=== PATIENT | male | born 1960 | race Caucasian/White ===

== ENCOUNTER 2017-05-23 21:11 | Observation (INO) | payer SELFPAY ==
[~2017-05-23] VITALS: Ht 180.3 cm; Wt 92.0 kg
[2017-05-23 21:33] LABS: HEMATOCRIT 42.2 % (38.0-50.0); HEMOGLOBIN 15.5 G/DL (12.5-16.6); MCH 32.3 PG (29.0-34.0); MCHC 36.7 G/DL (30.0-36.0); MCV 87.9 FL (86-99); PLATELET COUNT 258 K/uL (156-360); RBC DIS.WIDTH-CV 11.7 % (11.8-14.6); RBC DIS.WIDTH-SD 37.8 % (39-53); WHITE BLOOD COUNT 8.6 K/uL (4.1-10.2)
[2017-05-23 21:42] LABS: ALBUMIN 4.2 g/dL (3.2-4.8); CHLORIDE 96 mEq/L (99-109); POTASSIUM 4.4 mEq/L (3.7-5.4); SODIUM 127 mEq/L (136-147)
[2017-05-23 21:44] LABS: TOTAL PROTEIN 7.1 g/dL (6.4-8.3)
[2017-05-23 21:46] LABS: TOTAL BILIRUBIN 0.5 mg/dL (0.0-1.0)
[2017-05-23 21:48] LABS: ALKALINE PHOSPHATASE 94 IU/L (3-129); CREATININE 1.6 mg/dL (0.6-1.3); GFR ESTIMATE (CALCULATED) 47 mL/min/ (58.99-99999)
[2017-05-23 21:49] LABS: UREA NITROGEN (BUN) 15 mg/dL (9-23)
[2017-05-23 21:50] LABS: AST (GOT) 15 IU/L (2-34)
[2017-05-23 21:51] LABS: ALT (GPT) 29 IU/L (3-49)
[2017-05-23 21:54] LABS: GLUCOSE 753 mg/dL (70-99)
[2017-05-23 21:57] LABS: APPEARANCE CLEAR ((CLEAR)); BILIRUBIN NEGATIVE; BLOOD NEGATIVE; COLOR STRAW ((YELLOW)); GLUCOSE (STRIP) >=500; KETONES 5; LEUKOCYTES NEGATIVE; NITRITE NEGATIVE; PROTEIN (STRIP) NEGATIVE; SPECIFIC GRAVITY 1.031 (1.000-1.030); UCUL ADDED? NO; UROBILINOGEN 0.2 MG/DL (0.2-1.0)
[2017-05-23 22:55] LABS: BASE EXCESS -2.7 mEq/L (-3 to +3); BICARBONATE 21.9 mEq/L (22-26); CARBOXY HGB 1.1 % (0-5); COMMENTS - BLOOD GASES A+C+; METHEMOGLOBIN 1.1 % (0-1.5); PCO2 37 mm Hg (35-45); PO2 70 mm Hg (80-100); SITE RR; pH 7.38 (7.35-7.45)
[2017-05-23 22:56] LABS: DEVICE RA; TOTAL RESP RATE 18 resp/min
[2017-05-24] MEDS ORDERED: NICODERM CQ1 EAC2 TD (00:07)
[2017-05-24] MEDS ORDERED: NICODERM CQ1 EAC1 TD (00:08)
[2017-05-24 02:06] LABS: CHLORIDE 105 mEq/L (99-109); POTASSIUM 3.7 mEq/L (3.7-5.4); SODIUM 132 mEq/L (136-147)
[2017-05-24 02:12] LABS: CREATININE 1.1 mg/dL (0.6-1.3); GFR ESTIMATE (CALCULATED) > 59 mL/min/ (58.99-99999)
[2017-05-24 02:13] LABS: UREA NITROGEN (BUN) 12 mg/dL (9-23)
[2017-05-24 02:22] LABS: GLUCOSE 419 mg/dL (70-99)
[2017-05-24 02:43] VITALS: BP 124/81
[2017-05-24 07:11] LABS: HEMATOCRIT 39.3 % (38.0-50.0); MCH 31.4 PG (29.0-34.0); MCHC 35.6 G/DL (30.0-36.0); MCV 88.1 FL (86-99); PLATELET COUNT 235 K/uL (156-360); RBC DIS.WIDTH-CV 11.7 % (11.8-14.6); RBC DIS.WIDTH-SD 37.9 % (39-53); RED BLOOD COUNT 4.46 M/uL (4.00-5.50); WHITE BLOOD COUNT 8.1 K/uL (4.1-10.2)
[2017-05-24 07:33] VITALS: BP 99/58
[2017-05-24 07:37] LABS: ALBUMIN 3.6 G/DL (3.2-4.8); ALKALINE PHOSPHATASE 66 IU/L (3-129); ALT (GPT) 18 IU/L (3-49); AST (GOT) 12 IU/L (2-34); CHLORIDE 107 MEQ/L (99-109); CREATININE 0.8 MG/DL (0.6-1.3); GFR ESTIMATE (CALCULATED) > 59 mL/min/ (58.99-99999); HDL CHOLESTEROL 18 MG/DL (Desirable>=40); NON-HDL CHOLESTEROL 197 mg/dL (Desirable<160); POTASSIUM 3.6 MEQ/L (3.7-5.4); SODIUM 137 MEQ/L (136-147); TOTAL BILIRUBIN 0.4 MG/DL (0.0-1.0); TOTAL CHOLESTEROL 215 mg/dL (Desirable<200); TOTAL PROTEIN 5.3 G/DL (6.4-8.3); TRIGLYCERIDES 993 MG/DL (Normal: <150); UREA NITROGEN (BUN) 11 mg/dL (9-23)
[2017-05-24 07:39] LABS: GLUCOSE 100 mg/dL (70-99)
[2017-05-24 09:05] LABS: HEMOGLOBIN A1c (GLYCOHEMOGLOB) 14.2 % (Below 5.7)
[2017-05-24 11:13] VITALS: BP 114/68
[2017-05-24 15:56] VITALS: BP 146/79
[2017-05-24 20:27] VITALS: BP 119/75
[2017-05-24 23:50] VITALS: BP 122/70
[2017-05-25 07:28] VITALS: BP 109/68
[2017-05-25] MEDS ORDERED: METFORMIN HCL850 MG PO (08:33)
[2017-05-25] MEDS ORDERED: ASPIR-LOW81 MG PO (08:33)
[2017-05-25] MEDS ORDERED: INPEN (FOR HUM1 EACH SC (08:33)
[2017-05-25] MEDS ORDERED: HUMULIN N100 UNIT/2 SC (08:33)
[2017-05-25 12:09] VITALS: BP 124/72
== END 2017-05-25 12:10 | disposition home or self-care (01) ==
LOC: EME 21:11 → EDOF 05-24 01:00 → ENRESERV 05-24 01:01 → 5WEST 05-24 02:16 → ENPENDDIS 05-25 → 5WEST 05-25 12:10
PROVIDERS: Emergency Medicine; Internal Medicine; Nurse Practitioner Family
DX: E11.65 Type 2 diabetes mellitus with hyperglycemia (principal); N17.9 Acute kidney failure, unspecified; E87.1 Hypo-osmolality and hyponatremia; E86.0 Dehydration; R51 Headache; F17.200 Nicotine dependence, unspecified, uncomplicated; Z82.0 Family history of epilepsy and other diseases of the nervous system; Z83.3 Family history of diabetes mellitus; Z80.9 Family history of malignant neoplasm, unspecified
CPT/HCPCS: 36600; 80048 91; 80053; 80061; 81003; 82803; 82948; 83036; 85027; 99281; 99285; G0378; J1644; J1815; J7030